=== PATIENT | female | born 1970 | race Caucasian/White ===

== ENCOUNTER 2016-09-07 19:06 | Emergency (ER) | payer OTHER ==
[~2016-09-07] VITALS: Ht 160 cm; Wt 66.0 kg
[2016-09-07 19:12] VITALS: Ht 160 cm; Wt 66.0 kg
--- NOTE | 2016-09-07 19:54 | ERD ---
ER Documentation Chief Complaint Date/Time DATE: 09/07/16 TIME: 19:52 Chief Complaint Flu symptoms x3 days HPI This is a 45-year-old female presents to the emergency room for evaluation of a sore throat, and body aches for the past 3 days. The patient states that she did have a slight cough when this first started which was dry and she came to the emergency room today because her throat pain has increased. She localizes the pain on the right side of her throat, she is able to swallow and is up-to- date on immunizations. ROS All systems reviewed and are negative except as per history of present illness. Medications Home Meds No Active Prescriptions or Reported Meds Allergies Allergies: Coded Allergies: No Known Drug Allergies (Verified Allergy, 08/28/11) PMhx/Soc History of Surgery: No Anesthesia Reaction: No Hx Neurological Disorder: No Hx Respiratory Disorders: No Hx Cardiac Disorders: No Hx Psychiatric Problems: No Hx Miscellaneous Medical Probl: No Hx Alcohol Use: No Hx Substance Use: No Hx Tobacco Use: No Physical Exam Vitals Vital Signs Date Time Temp Pulse Resp B/P Pulse Ox O2 Delivery O2 Flow Rate FiO2 09/07/16 19:12 98.7 86 18 129/88 100 Physical Exam Const: No acute distress Head: [Atraumatic] Eyes: [Normal Conjunctiva] ENT: Pharyngeal erythema with white visible exudate noted on the right tonsil, no uvular deviation, no peritonsillar abscess [Normal External Ears, Nose and Mouth.] Neck: [Full range of motion. No meningismus.] Resp: [Clear to auscultation bilaterally] Cardio: [Regular rate and rhythm, no murmurs] Abd: [Soft, non tender, non distended. Normal bowel sounds] Skin: [No petechiae or rashes] Back: [No midline or flank tenderness] Ext: [No cyanosis, or edema] Neur: [Awake and alert] Psych: [Normal Mood and Affect]Const: [XOXOXO] Head: [Atraumatic] Eyes: [Normal Conjunctiva] ENT: [Normal External Ears, Nose and Mouth.] Neck: [Full range of motion. No meningismus.] Resp: [Clear to auscultation bilaterally] Cardio: [Regular rate and rhythm, no murmurs] Abd: [Soft, non tender, non distended. Normal bowel sounds] Skin: [No petechiae or rashes] Back: [No midline or flank tenderness] Ext: [No cyanosis, or edema] Neur: [Awake and alert] Psych: [Normal Mood and Affect] Procedures/MDM This 45-year-old female presents to the emergency room for evaluation of body aches and a sore throat. This patient was found to have acute strep pharyngitis with white visible exudate noted on the right tonsil. The patient was given Motrin and amoxicillin here in the emergency room. She will be discharged home with a prescription for Motrin, and amoxicillin to take over the course of the next 7 days. No signs of respiratory distress, patient tolerating secretions. Departure Diagnosis: Primary Impression: Acute streptococcal pharyngitis Condition: Stable VALE CHIN DO Sep 07, 2016 19:54
[2016-09-07] MEDS ORDERED: AMO500 PO (19:56)
[2016-09-07] MEDS ORDERED: IBUP800T25 PO (19:56)
[2016-09-07] MEDS ORDERED: IBUPROFEN 800 MG TAB PO ONE (20:00)
[2016-09-07] MEDS ORDERED: AMOXICILLIN 500 MG CAP PO ONE (20:00)
== END 2016-09-07 20:09 | disposition home or self-care (01) ==
LOC: FTE 19:06
DX: J02.0 Streptococcal pharyngitis (principal)
CPT/HCPCS: Z7502; Z7610; 99283

== ENCOUNTER 2017-10-07 11:38 | Emergency (ER) | END 2017-10-07 12:05 | disposition home or self-care (01) ==